=== PATIENT | male | born 1995 | race Caucasian/White ===

== ENCOUNTER 2022-07-28 13:21 | Emergency (ER) | payer BC ==
[~2022-07-28] VITALS: Ht 185.4 cm; Wt 93.0 kg
[2022-07-28] MEDS ORDERED: ONDANSETRON HCL/PF 4 MG/2 ML VIAL ONE (14:21)
[2022-07-28] MEDS ORDERED: ONDANSETRON HCL/PF 4 MG/2 ML VIAL IVP ONE (14:30)
[2022-07-28] MEDS ORDERED: IV NS 0.9% 1,000 ML BAG IV ONE (14:30)
[2022-07-28 14:59] LABS: BASOPHILS # (AUTO) 0.1 K/uL (0.0-0.2); BASOPHILS % (AUTO) 0.6 % (0.0-2.0); EOSINOPHILS % (AUTO) 0.9 % (0.0-6.0); HEMATOCRIT 50 % (39-51); HEMOGLOBIN 16.2 g/dL (13.5-17.5); LYMPHOCYTES # (AUTO) 1.3 K/uL (0.8-4.8); LYMPHOCYTES % (AUTO) 14.8 % (20.0-44.0); MEAN CORPUSCULAR HGB CONC 32 g/dl (31.0-36.0); MEAN CORPUSCULAR VOLUME 91 fL (80-96); MONOCYTES # (AUTO) 0.6 K/uL (0.1-1.30); MONOCYTES % (AUTO) 7.5 % (2.0-12.0); NEUTROPHILS # (AUTO) 6.6 K/uL (1.8-8.9); NEUTROPHILS % (AUTO) 76.2 % (43.0-81.0); PLATELET COUNT (AUTO) 266 K/uL (150-450); RED BLOOD CELL COUNT(AUTO) 5.48 MIL/uL (4.5-6.0); WHITE BLOOD COUNT (AUTO) 8.6 K/uL (4.3-11.0)
[2022-07-28 15:12] LABS: ALBUMIN 4.5 g/dL (3.4-5.0); BILIRUBIN,DIRECT 0.1 mg/dL (0.0-0.2); BILIRUBIN,TOTAL 0.4 mg/dL (0.2-1.0); CALCIUM, SERUM 9.5 mg/dL (8.5-10.1); CREATININE 1.1 mg/dL (0.6-1.3); POTASSIUM 4.3 mmol/L (3.5-5.1); TOTAL PROTEIN, SERUM 7.9 g/dL (6.4-8.2)
[2022-07-28 16:01] VITALS: BP 130/80
== END 2022-07-28 16:04 | disposition home or self-care (01) ==
LOC: ER 13:31
DX: R11.2 Nausea with vomiting, unspecified (principal); R10.9 Unspecified abdominal pain; F41.9 Anxiety disorder, unspecified
CPT/HCPCS: 99283; 96360; 85025; 80048; 83690; 80076; 36415; J7030; J2405

== ENCOUNTER 2022-08-04 21:20 | Emergency (ER) | payer BC ==
[~2022-08-04] VITALS: Ht 185.4 cm; Wt 93.9 kg
--- NOTE | 2022-08-04 23:01 | NUR ---
BIBSELF FROM HOME C/O ETOH "FEELING DELIRIOUS" & "HEART FLUTTERS" DRANK 6 MODELO TALL CANS 2 HRS AGO. PT A/OX4. TOELRATING R/A WELL WITH NO RESP DISTRESS.
[2022-08-04] MEDS ORDERED: LORAZEPAM 1 MG TABLET ONE (23:12)
[2022-08-04] MEDS ORDERED: LORAZEPAM 1 MG TABLET PO ONE (23:30)
[2022-08-04] MEDS ORDERED: CHLO25CA22 PO (23:34)
--- NOTE | 2022-08-05 01:48 | NUR ---
Patient discharged to home in stable condition. Written and verbal after care instructions given. Patient verbalizes understanding of instruction.
[2022-08-05 01:50] VITALS: BP 134/87
== END 2022-08-05 01:50 | disposition home or self-care (01) ==
LOC: ER 21:25
DX: F10.239 Alcohol dependence with withdrawal, unspecified (principal); F41.9 Anxiety disorder, unspecified; Z60.2 Problems related to living alone; Y90.9 Presence of alcohol in blood, level not specified

== ENCOUNTER 2023-01-13 19:33 | Emergency (ER) | payer BC ==
[~2023-01-13] VITALS: Ht 182.9 cm; Wt 93.9 kg
[~2023-01-13 19:33] MED LIST: CHLO25CA22 PO
[2023-01-13] MEDS ORDERED: ONDANSETRON 4 MG TAB.RAPDIS ONE (20:17)
[2023-01-13] MEDS ORDERED: IBUPROFEN 600 MG TABLET ONE (20:17)
[2023-01-13] MEDS ORDERED: IBUPROFEN 600 MG TABLET PO ONE (20:30)
[2023-01-13] MEDS ORDERED: ONDANSETRON 4 MG TAB.RAPDIS SL ONE (20:30)
[2023-01-13] MEDS ORDERED: ONDA4TAB5 PO (20:40)
[2023-01-13] MEDS ORDERED: IBUP-1955 PO (20:40)
[2023-01-13 20:58] VITALS: BP 137/95; TEMP 98.1; O2SAT 98
== END 2023-01-13 20:58 | disposition home or self-care (01) ==
LOC: ER 19:37
DX: S06.0X0A Concussion without loss of consciousness, initial encounter (principal); F41.9 Anxiety disorder, unspecified; Z79.899 Other long term (current) drug therapy; Z60.2 Problems related to living alone; W01.198A Fall on same level from slipping, tripping and stumbling with subsequent striking against other object, initial encounter; Y93.89 Activity, other specified; Y92.89 Other specified places as the place of occurrence of the external cause; Y99.8 Other external cause status
CPT/HCPCS: 99284; 70450; 93005; Q0162